=== PATIENT | male | born 1930 | race Caucasian/White ===

== ENCOUNTER 2016-03-11 19:55 | Inpatient (IN) | payer MEDICARE, OTHER ==
[~2016-03-11] VITALS: Ht 185.4 cm; Wt 86.5 kg
[2016-03-11 20:00] VITALS: BP 150/90; PULSE 83; RESP 16; O2SAT 98
[2016-03-11 20:52] LABS: BASOPHILS % (AUTO) 0.2 % (0-3); EOSINOPHILS % (AUTO) 0.7 % (0-5); MONOCYTES % (AUTO) 14.3 % (4-12); Mean Corpuscular Hemoglobin 30.2 pg (27.0-35.0); Mean Corpuscular Volume 91.8 fL (81-100); Platelet Count 157 bil/L (150-400)
[2016-03-11 21:14] LABS: TROPONIN T 0.01 ug/L (0.0-0.011)
--- NOTE | 2016-03-11 21:19 | ED.REPORT ---
HPI-General Illness Date of Service Mar 11, 2016 ED Provider: Oliverio Rosas MD The patient is an 85 year old male who presents to the ED complaining of dizziness and fatigue while shopping earlier today. His spouse reports that he was unable to walk unassisted earlier today and has been having difficulty getting out of bed by himself the last three days. Associated symptom of nausea. He has no history of heart attack. He denies chest pain, shortness of breath, falls, or any other symptoms at this time. He typically uses walking poles to ambulate. Nursing Notes Stated Complaint: ABD PAIN/NAUSEA Chief Complaint: General Complaint Nursing Notes Reviewed: Yes Allergies: Coded Allergies: No Known Allergies (Unverified , 03/11/16) General Time Seen by MD: 21:18 Chief Complaint Other (Fatigue) Hx Obtained From: Patient, Spouse Arrived By: Walk-in Sudden in Onset?: No Onset Occurred: 1 - 4 hours ago Symptom Duration: Since onset Severity: Current: No pain currently Severity: Maximum: No pain Recent Healthcare: No recent doctor visit, No recent hospitalization Similar Sx Previous: No Past Medical History Past Medical History None reported Past Surgical History None reported Smoking History Never Smoker Social History Alcohol Use: Denies alcohol use Drug Use: Denies drug use Ambulatory Status Independent Review of Systems Full Review of Systems Constitutional: Reports: Fatigue, Denies: Chills, Fever Respiratory: Denies: Non-productive cough, Shortness of breath Cardiovascular: Denies: Chest pain, Syncope GI: Reports: Nausea, Denies: Abdominal pain, Vomiting Neurologic: Reports: Dizziness, Problem walking, Denies: Change LOC, Syncope Physical Exam Vital Signs Vital Signs Date Time Temp Pulse Resp B/P Pulse Ox O2 Delivery O2 Flow Rate FiO2 03/12/16 00:06 83 16 119/89 99 Room Air 03/11/16 23:21 93 16 160/56 03/11/16 23:15 94 03/11/16 22:48 92 16 133/85 99 Room Air 03/11/16 20:00 36.6 83 16 150/90 98 Room Air Initial VS: Reviewed Head / Eyes: Atraumatic, Normocephalic, PERRL ENT: Mucous membranes moist, Conjunctiva normal, No scleral icterus Neck: Supple, Non-tender, Full range of motion Respiratory: Breath sounds normal, Clear to auscultation, No respiratory distress Abdomen / GI: Soft, Non-tender, No guarding, No rebound, No distention Back: No CVA tenderness Skin: Warm, Dry, No cyanosis Neurologic: Alert, Oriented, Nonfocal Psychiatric: Mood/affect normal, Behavior normal, Normal thought content General/Constitutional: Awake, Alert, No acute distress Cardiovascular: Atrial fibrillation on monitor Tachycardic Bilateral lower extremity +1 pitting edema Interpretation & Diagnostics Lab Results Interpretation Result Diagram: 03/11/16204303/11/162043 Test 03/11/16 20:44 03/11/16 22:09 03/12/16 00:35 White Blood Count 6.0th/mm3 (3.8-10.1) Red Blood Count 5.24mil/mm3 (4.40-5.80) Hemoglobin 15.8g/dL (13.8-17.2) Hematocrit 48.1% (41.0-50.0) Mean Corpuscular Volume 91.8fL (81-100) Mean Corpuscular Hemoglobin 30.2pg (27.0-35.0) Mean Corpuscular Hemoglobin Concent 32.8% (32.0-37.0) Red Cell Distribution Width 13.6% (12.3-15.4) Platelet Count 157bil/L (150-400) Neutrophils (%) (Auto) 76.0% (40-74) Lymphocytes (%) (Auto) 8.5% (14-46) Monocytes (%) (Auto) 14.3% (4-12) Eosinophils (%) (Auto) 0.7% (0-5) Basophils (%) (Auto) 0.2% (0-3) Sodium Level 136mEq/L (134-144) Potassium Level 5.0mEq/L (3.5-5.2) Chloride Level 97mEq/L (97-108) Carbon Dioxide Level 24mmol/L (18-29) Blood Urea Nitrogen 18mg/dL (8-27) Creatinine 1.01mg/dL (0.76-1.27) Estimat Glomerular Filtration Rate 75mL/min (>59) Glucose Level 193mg/dL (60-99) Calcium Level 8.3mg/dL (8.5-10.1) Magnesium Level 1.8mg/dL (1.6-2.6) Total Bilirubin 1.3mg/dL (0.0-1.2) Aspartate Amino Transf (AST/SGOT) 25U/L (0-50) Alanine Aminotransferase (ALT/SGPT) 15U/L (0-44) Alkaline Phosphatase 54U/L (25-160) Total Protein 7.3g/dL (6.4-8.4) Albumin 3.7g/dL (3.4-5.0) Lipase 20U/L (13-60) Pro-B-Type Natriuretic Peptide 1104pg/mL (0-486) Thyroid Stimulating Hormone (TSH) 1.330uIU/mL (0.450-4.500) Free Thyroxine 1.06ng/dL (0.82-1.77) Troponin T 0.010ug/L (0.0-0.011) ECG Interpretation ECG Interpretation: Atrial fibrillation with rate 102 Ventricular premature complex Nonspecific intraventricular conduction delay Time: 21:20 Interpreted by: ED physician X-Ray Chest Interpretation Chest Xray Interpretation: IMPRESSION: Reduced inspiratory volume, mild interstitial prominence, no definite acute disease. Dictated by: Manuel Hoskins M.D. on 03/11/2016 at 22:16 Approved by: Manuel Hoskins M.D. on 03/11/2016 at 22:16 View: Portable, 1 view Interpretation / Wet Read by: Interpret - Radiologist Re-Eval/Medical Decision Med Decision/Clinical Course 85-year-old presents with generalized weakness and loss of ambulation while at [facility] today. He is discovered to be in atrial fibrillation with a moderately rapid rate. This is new for him. No indication of acute coronary syndrome. He is admitted for further evaluation and management including echocardiogram and trending of his troponin. Initial enzymes at negative. Rapid responses improved with small doses of diltiazem. He is transported to the telemetry unit in stable condition. Source of Hx: Old records Time of Eval: 22:48 Re-Evaluation/Progress Note: Rechecked the patient. Discussed plan for admission. The patient understands and agrees to the plan. All questions addressed. Consultation : Referral / Consult Name: Rene Hsu MD Consulted With: Hospitalist Call Returned at: 22:33 Note: Discussed the patient's history and symptoms in detail with Dr. Hsu, hospitalist, who agrees to admit the patient. Counseled Regarding: Diagnosis, Lab results, Need for admission, Other (imaging ) Discharge & Departure Primary Impression: New onset atrial fibrillation Additional Impressions: Peripheral edema Weakness Disposition: ADMITTED TO HOSPITAL Discharge Condition All VS Reviewed: Yes Condition: Stable Referrals: Stephy Guardado MD (PCP) Jr Attestation Portions of this note were transcribed by Vargas Escalera. I, Dr. Rosas, personally performed the history, physical exam, and medical decision-making; I reviewed and confirmed the accuracy of the information in the transcribed note. Signed by: Jr Banegas, 03/11/16 22:49. copies to: Stephy Guardado MD, Christopher W MD Mar 11, 2016 21:19 VARGAS ESCALERA Mar 11, 2016 21:31
[2016-03-11 21:25] LABS: Magnesium 1.8 mg/dL (1.6-2.6)
[2016-03-11] MEDS ORDERED: Diltiazem 5 mg/mL 5 mL Inj IVPUSH PRN ×2 (21:30→23:45)
--- NOTE | 2016-03-11 22:17 | DRSVH ---
PROCEDURE: X-RAY CHEST ONE VIEW, PORTABLE ([id number]) INDICATIONS: weakness/dizziness TECHNIQUE: One view of the chest was acquired. COMPARISON: None. FINDINGS: Surgical changes and devices: None. Lungs and pleura: No pleural effusions or pneumothorax. Lungs are clear. Mediastinum: Mediastinal contours appear normal. Heart size is normal. Bones and chest wall: No suspicious bony lesions. Overlying soft tissues appear unremarkable. IMPRESSION: Reduced inspiratory volume, mild interstitial prominence, no definite acute disease. Dictated by: Manuel Hoskins M.D. on 03/11/2016 at 22:16 Approved by: Manuel Hoskins M.D. on 03/11/2016 at 22:16
[2016-03-11 22:48] VITALS: BP 133/85; PULSE 92; RESP 16; O2SAT 99
[2016-03-11 23:15] VITALS: PULSE 94
[2016-03-11 23:21] VITALS: BP 160/56; PULSE 93; RESP 16
[2016-03-11] MEDS ORDERED: Alum-Mag Hydrox-Simeth 30 mL Suspension PO PRN (23:45)
[2016-03-11] MEDS ORDERED: Ondansetron 2 mg/mL 2 mL Inj IVPUSH PRN (23:45)
[2016-03-12] VITALS (11 sets, daily range): BP systolic 119–161; BP diastolic 74–95; PULSE 60–103; RESP 16–20; O2SAT 90–99
--- NOTE | 2016-03-12 01:34 | NUR ---
Arrival on the Floor Pt arrived on the floor. Pt oriented to self and place but forgetful of date and time.
[2016-03-12] MEDS ORDERED: Polyethylene Glycol (PEG) 17 Gm Powder PO PRN (03:25)
--- NOTE | 2016-03-12 03:38 | NUR ---
Admission Pt oriented to self and family name. He answers mostly of confused answer. He does not provide accurate H&P. Pt answers no to most of Medical history questions and denies he is taking any medications regularly. Unable to accurate verify allergies but he mentioned that he is not allergic to any medications that he knows of. Telemetry AFib 80s-100s. Addendum: 03/12/16 at 0651 by TYRESE ASHBY RN Pt has been forgetful, confuse and impulsive. Gurvinder alarm on. Lasix 40 mg IV given this am and noted about 1650 cc urine output.
[2016-03-12 04:07] LABS: APPEARANCE,URINE CLEAR (CLEAR,HAZY); COLOR,URINE YELLOW (YELLOW); OCCULT BLOOD,URINE TRACE (NEGATIVE); UROBILINOGEN,URINE NORMAL (NORMAL)
[2016-03-12] MEDS: Furosemide 10 mg/mL 4 mL Inj IVPUSH SCH ×2 (04:35→08:36)
--- NOTE | 2016-03-12 09:31 | HP ---
[address] [address] HISTORY AND PHYSICAL PATIENT: JERI AMATO : 1930 MR#: [id number] ADMIT: 03/12/2016 JOB ID: [id number] HISTORY OF PRESENT ILLNESS: This is an 85-year-old male, a member of the [employer], who presents to the emergency department after becoming weak and having to sit down in the food court at [facility] yesterday afternoon. Paramedics found him to be in atrial fibrillation, which is apparently a new rhythm for him. His rate was above 100 and so, he was admitted for observation and stabilization. He was found to have 2+ edema of the left leg and trace edema of the right leg. He claims that this is new but then contradicts himself stating that he has had edema before. He is not on any medication and appears to have no documented past medical history. His memory may be suspect but he is also definitely a minimizer of medical issues, as is typical for that particular philosophical belief. There has been no chest pain, shortness of breath, nausea, vomiting, abdominal pain, fevers, chills, sweats, coughing, bleeding, seizures, rashes, joint pain, depression, new allergies. PAST MEDICAL HISTORY: The left eye "destroyed itself." He has apparently had edema in the past but is unclear about that. He denies any prior surgeries. MEDICATIONS: None. ALLERGIES: None. SOCIAL HISTORY: He lives in [place] with his but his primary care provider is in [place], where he used to live. He is a believer in the [employer] tradition. There is no smoking, no alcohol. PHYSICAL EXAMINATION: General: Alert and oriented x3. His memory at times seems to be incomplete. Vitals: Temperature is 36.6, pulse 83, respirations 16, blood pressure 119/89, O2 sat is 99% on room air. Pupils are equally round, reactive to light and accommodation. Extraocular muscles are intact, except for the fact that the left eye does not track. Sclerae are pink and anicteric. Throat looks normal. No lymph nodes felt in neck or supraclavicularly. There is no thyromegaly. JVD is less than 6 cm. No carotid bruits are heard. Heart is irregularly irregular. No murmur. Lungs are clear to auscultation bilaterally. Abdomen is soft. Bowel sounds positive. Nontender. No organomegaly. Extremities have 2+ pitting edema of the left ankle and trace on the right ankle. Skin has no rash or jaundice. LABORATORIES: White count 6.0, hemoglobin 15.8, platelets 157. D-dimer 0.5. Sodium is 136, potassium 5.0, chloride 97, CO2 is 24, BUN is 18, creatinine is 1.01, glucose 193, calcium 8.3. Total bilirubin 1.3. Magnesium 1.8. BNP 1104. Troponin I 0.01. TSH is 1.33, T4 is 1.06. Urinalysis shows 0-2 RBC and 0-5 WBC, negative leukocyte esterase, negative nitrites. Influenza screen is negative for A and B. IMAGING: Chest x-ray shows mild interstitial prominence with no definite acute disease. ASSESSMENT AND PLAN: 1. Atrial fibrillation. This appears to be a new rhythm for him and so, echocardiogram will be ordered. Thyroid testing is normal and the BNP is elevated, consistent with rate-related heart failure, most likely. He is on diltiazem p.r.n. with the rate close to controlled. Consider cardiology consultation. 2. Congestive heart failure. Echocardiogram is pending. Lasix has been ordered, and the BNP is noted to be elevated. This will be followed up by the morning rounding physician. 3. [employer] philosophy. I asked the patient directly what his wishes were as far as treatment, and he indicates he would like full traditional medical treatment. SANDRA
[2016-03-12] MEDS ORDERED: Diltiazem 5 mg/mL 5 mL Inj IVPUSH ONE (10:45)
--- NOTE | 2016-03-12 10:45 | PCM.PNMED ---
Subjective Date of Service Mar 12, 2016 Subjective confused, manasa vest, poor memory per staff registered nurse, ongoing afib --currently w/ friends in room, conversant not in manasa vest + Exam Vital Signs Vital Sign - Last Date Time Temp Pulse Resp B/P Pulse Ox O2 Delivery O2 Flow Rate FiO2 03/12/16 09:58 103 03/12/16 06:45 36.4 18 149/95 95 Room Air Intake and Output 03/11/16 03/11/16 03/12/16 Cumulative From/Thru 15:00 23:00 07:00 03/11/16 20:00 - 03/12/16 06:56 Intake Total 400 ml 400 ml Output Total 1650 ml 1650 ml Balance -1250 ml -1250 ml Intake Oral 400 ml 400 ml Output Urine Total 1650 ml 1650 ml # Voids 6 6 # Bowel Movements 0 0 Exam NAD A and O on RA CTAB irreg irreg rate rhythm sof mirian nd + BS BUNDY trace edema shins Lab and Diagnostics Result Diagram: 03/11/16204303/11/162043 Assessment & Plan Reason for admission 85 y m w/ acute onset weakness at store, found to have new afib in RVR, s/p boluses of dilt and lasix for concurrent fluid overload w. BNP >1k, awaiting echo to confirm CHF, developed delirium overnight --trial coreg Q6 w/ hold parameters, prn dilt iv --diuresing lasix 40 QDay, montior bmp, wt decreased 3kg, net neg 1.2L, monitor chem panel --pending lipid, blood glu neg, patient indicates that he trips, friend indicates that he does not fall, anticipate asa if fall risk cnfirmed by elevated bilirubin likey congestive, monitor delirium overnight --monitor, no ETOH hx due to worship Chronic no home medications Dispo eventual home, pending cardiology f/u VTE Prophylaxis: Sub-Q Enoxaparin VTE Mechanical Devices: Intermittant Pneumatic CD Resuscitation Status: CPR: Attempt Resuscitation Marcella Brower MD Mar 12, 2016 10:45
[2016-03-12 11:48] LABS: Phosphorus 2.8 mg/dL (2.5-4.9)
[2016-03-12 12:19] LABS: Bilirubin, Direct 0.2 mg/dL (0.0-0.3)
--- NOTE | 2016-03-12 14:34 | CONS ---
[address] [address] CONSULTATION REPORT PATIENT: JERI AMATO : 1930 MR#: [id number] ADMIT: 03/12/2016 JOB ID: [id number] DATE OF SERVICE: 03/12/2016 CARDIOLOGY CONSULTATION: CHIEF COMPLAINT: Assessed by Dr. Brower of the hospital team to consult on this patient given atrial fibrillation. HISTORY OF PRESENT ILLNESS: The patient is an 85-year-old man who apparently does not have many medical problems. He was at [facility] and suddenly felt very weak, stomach upset, decreased appetite as well as some dizziness. Ultimately he was taken to our ED rather than the emergency department in [place]. He tells me that he is feeling better at this time. Per the ED note, it sounds like he was having some difficulty getting out of bed by himself for the last several days. He denied chest pain, shortness of breath, falls or any other symptoms. Uses walking poles to ambulate. He denies increased shortness of breath. He has some edema which is not clear if this is new or old. He denies orthopnea, PND, palpitations. He tells me that he had no numbness, weakness, speech difficulty. He did require assistance to get into the car for transport as he was shuffling and bent over at the time of his transfer to our hospital. PAST MEDICAL HISTORY/PROBLEM LIST: He denies any problems. MEDICATIONS: None as an outpatient. ALLERGIES: No known drug allergies. PERSONAL SOCIAL HISTORY: No tobacco use. No significant alcohol use. FAMILY HISTORY: No early coronary artery disease. REVIEW OF SYSTEMS: Constitutional: No fevers, chills, night sweats or weight loss. GI: Denies any problems with blood in his stool but had some stomach upset, nausea and decreased appetite yesterday. : No dysuria, no hematuria. Pulmonary: No increased shortness of breath. Cardiac: As per HPI. Neuro: Weakness especially of the lower extremity with a shuffling but no vision or speech changes. No history of stroke. Heme: No easy bruising or bleeding. Derm: No rash or skin breakdown. Endocrine: No heat or cold intolerance. ENT: No sore throat. Ophtho: No vision changes. Psych: No acute issues. All other review of systems on a 12 point review of systems are negative. PHYSICAL EXAMINATION: Blood pressure is 142/87, heart rate is 89, sats are 95% on room air. General: In no acute distress. Speaking in full sentences without apparent shortness of breath. Head and neck examination: Normocephalic, atraumatic. Vascular: No carotid bruits. 1-2+ distal pulses. Heart examination is irregular without obvious murmurs, gallops or rubs appreciated. Lungs clear to auscultation anteriorly. Back: No CVA tenderness to palpation. Abdomen: Soft, non distended. Extremities: Warm. Mild edema, 1-2+ distal pulses. Skin without breakdown appreciated. Neuro: He is alert and interactive. His story changes a little as we speak. Psych: Appropriate mood and affect. Gait not tested. vision: grossly normal. LABORATORY AND DIAGNOSTIC STUDIES: EKG shows possible coarse atrial fibrillation versus a possible atrial tachycardia or atrial flutter with variable block. CURRENT MEDICATIONS: He was getting boluses of diltiazem but I have recommended to start him on oral metoprolol which he has received 25 b.i.d. He was also placed on furosemide 40 IV daily given concerns for CHF. Enoxaparin 40 daily. LABORATORIES: Show white count 6, H/H 15.8 and 48.1, platelets 157,000. Chemistry today shows sodium 139, potassium 2.9, chloride and bicarbonate 93 and 32 respectively. BUN and creatinine 18 and 1.1. Troponin is not elevated. Direct bilirubin somewhat elevated 1.3 and ProBNP somewhat elevated. IMAGING: Shows a chest x-ray with reduced inspiratory volume, mild interstitial prominence which could be related to CHF. PLANS/RECOMMENDATIONS: 1. The patient had weakness and had to be assisted to get him into the car. He had some nausea, some other vague symptoms. Denied any speech or vision changes. The feeling was that this was related all to atrial fibrillation for which he had a high rate. He is now rate controlled and denies any problems at this time. 2. I would get an echocardiogram on him to evaluate his heart function. See if there is any valvular disease. I do not appreciate murmurs on examination. 3. Continue with metoprolol. He is currently not on anything for anticoagulation. Given his age he needs to be at least on aspirin. It sounds like he may have some unsteadiness with walking and falls so anticoagulation with Coumadin might need to have greater discussion in terms of the benefits versus the risks. 4. I think we, at some point, need to get him up with physical therapy and make sure that he is able to walk in a normal fashion once again, as he has does have some increase of risk of stroke, given the fact that he was in atrial fibrillation. Would recommend imaging to rule out stroke as the cause of his weakness 45 minutes was spent reviewing the chart, speaking with the patient and his and examining the patient MTDD
--- NOTE | 2016-03-12 14:52 | DRSVH ---
PROCEDURE: CT BRAIN WITHOUT CONTRAST ([id number]) INDICATIONS: Generalized weakness. Rule out CVA. TECHNIQUE: Noncontrast 4.5 mm thick angled axial sections acquired from the foramen magnum to the vertex, with c oronal reformats. COMPARISON: None. FINDINGS: Image quality: Excellent. CSF spaces: Basal cisterns are patent. No extra-axial fluid collections. The ventricles are symmet vinnie in size and shape. There is moderate cerebral volume loss, with resultant ventricular and sulcal prominence. The ventricles are enlarged slightly out of proportion to the sulci raising the possibi lity of normal pressure hydrocephalus. Brain: No intracranial hemorrhage, mass, or mass effect. There are subcortical, periventricular and deep white matter hypodensities consistent with moderate chronic small vessel ischemic changes. The mcmillan-white matter interface appears preserved. There is intracranial internal carotid artery atheros clerosis. Skull and face: Calvarium and visualized facial bones appear intact, without suspicious lesions. Sinuses: Visualized sinuses and mastoids are clear. IMPRESSION: 1. No definite acute intracranial abnormality. 2. Cerebral volume loss with enlargement of the ventricles study of proportion to the sulci raising the possibility of normal pressure hydrocephalus. Recommend correlation clinically and if indicated further evaluation may be obtained with a nuclear medicine cisternogram. 3. Moderate chronic white matter small vessel ischemic changes. Dictated by: Balbir Norris M.D. on 03/12/2016 at 14:50 Approved by: Balbir Norris M.D. on 03/12/2016 at 14:50
--- NOTE | 2016-03-12 15:37 | DRSVH ---
[facility] [address] [place] [address] Echocardiogram Report Name: JERI AMATO te: 03/12/2016 Height: 73 in Hospital Exam Location: [facility] Weight: 198 lb Gender: Male BSA: 2.1 m2 : 1930 Age: 85 yrs BP: 149/95 mmHg Reason For Study: Atrial fibrillation Ordering Physician: Performed By: Leonarda Bolanos Referring Physician: Rene DOSS Interpretation Summary 1. Normal left ventricular size, wall thickness and systolic function with an estimated EF of 60-65% 2. Grossly normal right ventricular size with normal systolic function. 3. No evidence for significant valvular pathology. No old study for comparison Procedure: A two-dimensional transthoracic echocardiogram with color flow and Doppler was performed. The study quality was technically good. There is no prior echocardiogram noted for this patient. The patient was in atrial fibrillation with heart rates between 91-108 bpm during the exam. Left Ventricle: The left ventricle is normal in size. There is normal left ventricular wall thickness. The ejection fraction is estimated to be 60-65%. No obvious wall motion abnormalities. Diastolic function could not be accurately assessed due to atrial fibrillation. Right Ventricle: The right ventricle is grossly normal size. The right ventricular systolic function is normal. Atria: The left atrium is borderline dilated. Right atrial size is normal. No color doppler evidence for an ASD. Mitral Valve: Leaflets appear thin with normal excursion. There is mild mitral regurgitation. Aortic Valve: The aortic valve is trileaflet. The aortic valve opens well. No aortic regurgitation is present. Tricuspid Valve: The tricuspid valve leaflets are thin and pliable. There is mild tricuspid regurgitation. The right ventricular systolic pressure is estimated at 34 mmHg assuming a right atrial pressure of 8 mm Hg. Pulmonic Valve: The pulmonic valve is normal in structure and function. There is trace pulmonic regurgitation. Great Vessels: The aortic root is normal size. The ascending aorta is mildly dilated at 3.6 cm. The IVC is dilated (diameter is greater than 2.1 cm) yet it collapses greater than 50% with a sniff. This suggests a right atrial pressure of 8 mm Hg. Pericardium/ Pleura There is no pericardial effusion. There is no pleural effusion. MMode/2D Measurements & Calculations LVIDd: 3.9 cm LA dimension: 4.1 cm RA long axis Ao root diam LVIDs: 2.6 cm FS: 32.2 % LA A2 area: 21.5 cm RA area Aortic Jxn IVSd: 0.80 cm LA A4 area: 21.1 cm LVPWd: 0.84 cm LA length (vol): 6.0 cm : 18.9 cm asc Aorta LA vol: 64.4 ml RA vol: 53.6 mlDiam: 3.6 cm LA vol index RA : 25.0 mm/ RVDd major IVC diam: 2.3 cm : 5.0 cm LV calvin. diameter/BSA LV sys. diameter/BSA RVD1 (basal) RVD2 (mid) (cm/m^2): 1.8 (cm/m^2): 1.2 : 2.9 cm Doppler Measurements & Calculations Ao V2 max MV P1/2t TR max oj MV V2 mean : 123.7 cm/sec : 51.3 msec : 252.8 cm/sec : 60.6 cm/sec Ao max P.1 mmHg TR max PG MV mean PG Ao mean P.7 mmHg : 25.6 mmHg PA V2 max MV V2 VTI : 109.4 cm/sec : 14.7 cm PA mean PG PA Accel Time MV P1/2t max oj Ao V2 mean PA V2 mean : 91.5 cm/sec : 69.1 cm/sec MVA(P1/2t): 4.3 cm2 Ao V2 VTI : 19.9 cm Reading Physician:03:37 PM
--- NOTE | 2016-03-12 16:56 | NUR ---
Social Work: Initial Assessment D: Per EMR review, pt is an 85 year old male admitted for New onset Afib, generalized Weakness. Pt is [facility] Medicare; pt has no LTC insurance or VA benefits. PCP is Stephy Guardado MD. NOK is Vicki Mendoza, , . Advanced directive information provided to pt's . Readmit score not entered at this time. HOUSEKEEPER/CUSTODIAN/LAUNDRY WORKER met with pt and at bedside. SW role explained. See initial assessment. Pt has baseline dementia and lives at home with his who provides assistance with ADLS. Pt was previously ambulating I and using walking sticks. Pt has never had home health or skilled rehab. HOUSEKEEPER/CUSTODIAN/LAUNDRY WORKER reviewed PT recommendations with pt and spouse; they agree with plan for skilled rehab. SNF choice list provided. Preference is for [facility]. HOUSEKEEPER/CUSTODIAN/LAUNDRY WORKER provided referrals to both facilities. Pt to require authorization prior to admission. PPW and PASSR Complete A: Pt who has baseline dementia but previously I with ambulation P: Anticipate pt to discharge to skilled rehab pending GH authorization; [facility] Reviewing ANGUS Berger Addendum: 03/12/16 at 1704 by AGNES CARRERA Amended: Links added.
--- NOTE | 2016-03-12 17:23 | NUR ---
Evaluation completed. Please go to "Notes" then click on "Assessments and Notes" (bottom left corner of screen). Then select appropriate discipline tab on top of screen.
[2016-03-13] VITALS (8 sets, daily range): BP systolic 119–141; BP diastolic 73–85; PULSE 64–89; RESP 16–22; O2SAT 93–97
--- NOTE | 2016-03-13 06:00 | NUR ---
Mentation/ pt confused and very forgetful, unable to retain any information for more than a few minutes. Pt incontinent to urine over night, denies any pain.
[2016-03-13 06:42] LABS: Magnesium 1.9 mg/dL (1.6-2.6); Phosphorus 3.2 mg/dL (2.5-4.9)
[2016-03-13] MEDS: Furosemide 10 mg/mL 4 mL Inj IVPUSH SCH (09:02)
--- NOTE | 2016-03-13 10:01 | PCM.PNMED ---
Subjective Date of Service Mar 13, 2016 Subjective He continues confused and hard of hearing. He was seen by Cardiology and had a normal Echo done yesterday. An NPH workup was started but the Cisternogram/LP will have to be reordered as an outpatient as that is not a covered inpatient test. Today he is staring at the TV and ignoring my visit. When I first saw him 2 days ago he was engaged and only mildly confused. He has been reported to have urinary incontinence yesterday. PT has not seen him yet. Exam Vital Signs Vital Sign - Last Date Time Temp Pulse Resp B/P Pulse Ox O2 Delivery O2 Flow Rate FiO2 03/13/16 06:02 72 03/13/16 05:50 36.3 22 128/85 94 Room Air Intake and Output 03/12/16 03/12/16 03/13/16 Cumulative From/Thru 15:00 23:00 07:00 03/11/16 20:00 - 03/13/16 06:51 Intake Total 736 ml 220 ml 1356 ml Output Total 885 ml 2535 ml Balance -149 ml 220 ml -1179 ml Intake Oral 736 ml 220 ml 1356 ml Output Urine Total 885 ml 2535 ml # Voids 2 3 11 # Bowel Movements 2 0 2 Exam He is staring at the TV, ignoring my visit. I was not able to engage him at any level. He is very hard of hearing. Heart is irregularly irregular without murmur. Lungs are clear to auscultation bilaterally. Extremities have no ankle edema. IVs and Medications Medications Reviewed: Medications were reviewed in detail Lab and Diagnostics Result Diagram: 03/11/16204303/13/16 0533 X-Rays, CTs and MRIs CT BRAIN WITHOUT CONTRAST ([id number]) INDICATIONS: Generalized weakness. Rule out CVA. TECHNIQUE: Noncontrast 4.5 mm thick angled axial sections acquired from the foramen magnum to the vertex, with coronal reformats. COMPARISON: None. FINDINGS: Image quality: Excellent. CSF spaces: Basal cisterns are patent. No extra-axial fluid collections. The ventricles are symmetric in size and shape. There is moderate cerebral volume loss, with resultant ventricular and sulcal prominence. The ventricles are enlarged slightly out of proportion to the sulci raising the possibility of normal pressure hydrocephalus. Brain: No intracranial hemorrhage, mass, or mass effect. There are subcortical , periventricular and deep white matter hypodensities consistent with moderate chronic small vessel ischemic changes. The mcmillan-white matter interface appears preserved. There is intracranial internal carotid artery atherosclerosis. Skull and face: Calvarium and visualized facial bones appear intact, without suspicious lesions. Sinuses: Visualized sinuses and mastoids are clear. IMPRESSION: 1. No definite acute intracranial abnormality. 2. Cerebral volume loss with enlargement of the ventricles study of proportion to the sulci raising the possibility of normal pressure hydrocephalus. Recommend correlation clinically and if indicated further evaluation may be obtained with a nuclear medicine cisternogram. 3. Moderate chronic white matter small vessel ischemic changes. Dictated by: Balbir Norris M.D. on 03/12/2016 at 14:50 Cardiac Echo Impressions Atrial fibrillation Ordering Physician: Performed By: Leonarda Bolanos Referring Physician: Rene HSU Interpretation Summary 1. Normal left ventricular size, wall thickness and systolic function with an estimated EF of 60-65% 2. Grossly normal right ventricular size with normal systolic function. 3. No evidence for significant valvular pathology. No old study for comparison Assessment & Plan 85 y m w/ acute onset weakness at store, found to have new afib in RVR -- Continue metoprolol per cardiology. -- Continue Lasix changing to oral daily along with electrolyte monitoring. His edema has resolved. -- Consider anticoagulation with Coumadin, pending physical therapy evaluation for gait and balance stability. 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 Normal pressure hydrocephalus -Nuclear cisternogram would be needed to clarify and this will apparently need to be deferred to outpatient status. -He appears to have the classic triad of early dementia, gait/falling instability, urinary incontinence. Dispo to a fdc facility for rehabilitation and continuation of the NPH workup. This will likely occur tomorrow pending physical therapy evaluation and cardiology consult conclusion VTE Prophylaxis: Sub-Q Enoxaparin VTE Mechanical Devices: Intermittant Pneumatic CD Resuscitation Status: CPR: Attempt Resuscitation Rene Hsu MD Mar 13, 2016 07:42
[2016-03-14] VITALS (11 sets, daily range): BP systolic 120–138; BP diastolic 71–81; PULSE 58–95; RESP 16–22; O2SAT 92–96
--- NOTE | 2016-03-14 05:50 | NUR ---
Mentation pt more lucid this night, able to have meaningful conversation and talks about life as gymnastics instructor , able to make needs known and sometimes uses urinal, sometimes incontinent. Pt denies any pain and is pleasant all shift.
[2016-03-14 08:19] LABS: BASOPHILS % (AUTO) 0.2 % (0-3); EOSINOPHILS % (AUTO) 1.5 % (0-5); MONOCYTES % (AUTO) 19.8 % (4-12); Mean Corpuscular Hemoglobin 30.2 pg (27.0-35.0); Mean Corpuscular Volume 90.7 fL (81-100); NEUTROPHILS % (AUTO) 56.8 % (40-74); Platelet Count 159 bil/L (150-400)
[2016-03-14] MEDS: Furosemide 10 mg/mL 4 mL Inj IVPUSH SCH (09:15)
--- NOTE | 2016-03-14 10:44 | NUR ---
Spoke with Sky at [facility] and they can accept patient when ready with to follow. I will initiate the [facility] auth today. Updated RHEUMATOLOGY SPECIALIST
--- NOTE | 2016-03-14 11:18 | NUR ---
Social Work Continued Discharge Planning: SW met with patient and at bedside to discuss discharge plan. Patient and states plan as SNF vs HHC. Patient states wanting to discharge patient home upon discharge. Patient educated on therapy recommendations for SNF placement. SW discussed HHC services and expectations at discharge. Private pay caregiver services also discussed with patient and . Patient states plan as SNF placement as she is unable to care for patient needs. Patient aware of SNF acceptance at [facility], pending [facility] [employer]. UR specialist to begin [facility] for possible authorization SNF acceptance. SW to follow. PLAN: SNF, Accepted at [facility] pending [facility] (initiated), pending clinical course. Andreas GRECO
--- NOTE | 2016-03-14 19:26 | NUR ---
Activity/Nuero Patient a/o x 1-2, denies pain or sob but c/o nausea throughout the shift, taking diet poor, Zofran x 1 given. Patient up in chair for meals, amb with walker and one person assist, slightly unsteady on feet. Incont of urine and BRP. VSS, tele A fib. spoke with MD and aware of poc.
--- NOTE | 2016-03-14 21:30 | PCM.PNMED ---
Subjective Date of Service Mar 14, 2016 Subjective She has no new complaints and appears comfortable in no apparent distress. Exam Vital Signs Vital Sign - Last Date Time Temp Pulse Resp B/P Pulse Ox O2 Delivery O2 Flow Rate FiO2 03/14/16 20:00 77 03/14/16 19:51 22 121/78 03/14/16 16:47 36.8 92 Room Air Intake and Output 03/13/16 03/13/16 03/14/16 Cumulative From/Thru 15:00 23:00 07:00 03/11/16 20:00 - 03/14/16 06:24 Intake Total 600 ml 100 ml 2056 ml Output Total 850 ml 200 ml 3585 ml Balance -250 ml -100 ml -1529 ml Intake Oral 600 ml 100 ml 2056 ml Output Urine Total 850 ml 200 ml 3585 ml # Voids 11 # Bowel Movements 0 2 Exam General: Patient is sitting in a bedside chair in no apparent distress. He appears comfortable. HEENT: Head is atraumatic normocephalic. Eyes: Pupils are equally round and reactive to light and accommodation. Extraocular muscles are intact. Sclera are white anicteric. Subconjunctival mucosa is pink. Ears and nose are unremarkable. Oropharynx: There is no mucosal lesions, there is no thrush, there is no pharyngitis. Neck: Is supple, there are no nodes or masses or tenderness. Chest: Is clear to auscultation and percussion. There are no rales, rhonchi, wheezes or rubs. Heart: Rate is controlled, rhythm is irregular. There is no new murmur, rub or gallop. Abdomen: Good bowel sounds are present. Abdomen is soft, nontender, no organomegaly or masses were appreciated. Extremities: Are symmetrical and well perfused. There is no edema, there is no cellulitis, no rash. Neurologic: There are no focal neurological deficits. Cranial nerves II through XII are intact. There are no sensory or motor deficits. Psychiatric: Patients mood is calm and shows no sign of agitation. Genital: Deferred Rectal: Deferred Lab and Diagnostics Result Diagram: 03/14/16 5497 03/14/16 4842 X-Rays, CTs and MRIs CT BRAIN WITHOUT CONTRAST ([id number]) INDICATIONS: Generalized weakness. Rule out CVA. TECHNIQUE: Noncontrast 4.5 mm thick angled axial sections acquired from the foramen magnum to the vertex, with coronal reformats. COMPARISON: None. FINDINGS: Image quality: Excellent. CSF spaces: Basal cisterns are patent. No extra-axial fluid collections. The ventricles are symmetric in size and shape. There is moderate cerebral volume loss, with resultant ventricular and sulcal prominence. The ventricles are enlarged slightly out of proportion to the sulci raising the possibility of normal pressure hydrocephalus. Brain: No intracranial hemorrhage, mass, or mass effect. There are subcortical , periventricular and deep white matter hypodensities consistent with moderate chronic small vessel ischemic changes. The mcmillan-white matter interface appears preserved. There is intracranial internal carotid artery atherosclerosis. Skull and face: Calvarium and visualized facial bones appear intact, without suspicious lesions. Sinuses: Visualized sinuses and mastoids are clear. IMPRESSION: 1. No definite acute intracranial abnormality. 2. Cerebral volume loss with enlargement of the ventricles study of proportion to the sulci raising the possibility of normal pressure hydrocephalus. Recommend correlation clinically and if indicated further evaluation may be obtained with a nuclear medicine cisternogram. 3. Moderate chronic white matter small vessel ischemic changes. Dictated by: Balbir Norris M.D. on 03/12/2016 at 14:50 PROCEDURE: X-RAY CHEST ONE VIEW, PORTABLE ([id number]) INDICATIONS: weakness/dizziness TECHNIQUE: One view of the chest was acquired. COMPARISON: None. FINDINGS: Surgical changes and devices: None. Lungs and pleura: No pleural effusions or pneumothorax. Lungs are clear. Mediastinum: Mediastinal contours appear normal. Heart size is normal. Bones and chest wall: No suspicious bony lesions. Overlying soft tissues appear unremarkable. IMPRESSION: Reduced inspiratory volume, mild interstitial prominence, no definite acute disease. Dictated by: Manuel Hoskins M.D. on 03/11/2016 at 22:16 Approved by: Manuel Hoskins M.D. on 03/11/2016 at 22:16 Cardiac Echo Impressions Atrial fibrillation Ordering Physician: Performed By: Leonarda Bolanos Referring Physician: Rene DOSS Interpretation Summary 1. Normal left ventricular size, wall thickness and systolic function with an estimated EF of 60-65% 2. Grossly normal right ventricular size with normal systolic function. 3. No evidence for significant valvular pathology. No old study for comparison Assessment & Plan This is an 85-year-old male, a member of the [employer], who presents to the emergency department after becoming weak and having to sit down in the food court at [facility] yesterday afternoon. Paramedics found him to be in atrial fibrillation, which is apparently a new rhythm for him. His rate was above 100 and so, he was admitted for observation and stabilization. He was found to have 2+ edema of the left leg and trace edema of the right leg. He claims that this is new but then contradicts himself stating that he has had edema before. He is not on any medication and appears to have no documented past medical history. His memory may be suspect but he is also definitely a minimizer of medical issues, as is typical for that particular philosophical belief. There has been no chest pain, shortness of breath, nausea, vomiting, abdominal pain, fevers, chills, sweats, coughing, bleeding, seizures, rashes, joint pain, depression, new allergies. 85 y m w/ acute onset weakness at store, found to have new afib in RVR -- Continue metoprolol 25 mg by mouth twice a day per cardiology. -- Continue Lasix changing to oral daily along with electrolyte monitoring. His edema has resolved. 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 Normal pressure hydrocephalus -Patient has a triad of early dementia, unstable gait and urinary incontinence. -CT findings are consistent with this diagnosis as well -Nuclear cisternogram would be needed to clarify and this will apparently need to be deferred to outpatient status. Disposition: She will need to be transferred to a a prison facility for rehabilitation and continuation of the NPH workup. This will likely occur tomorrow pending physical therapy evaluation and cardiology consult conclusion. I discussed case with patient's Vicki at length over the phone. Pain Evaluation: Adequate Pain Control VTE Prophylaxis: Sub-Q Enoxaparin VTE Mechanical Devices: Intermittant Pneumatic CD Resuscitation Status: CPR: Attempt Resuscitation Oliverio Thomson MD Mar 14, 2016 21:30
[2016-03-15] VITALS (7 sets, daily range): BP systolic 109–129; BP diastolic 75–84; PULSE 71–92; RESP 16–17; O2SAT 92–95
--- NOTE | 2016-03-15 03:32 | NUR ---
CONFUSION Initial assessment patient was oriented to self and place, using call light appropriately. As night progressed patient increasingly confused, not calling staff, impulsively trying to get out of bed, confused to time and place, and not steady on feet. Bed alarm on and close monitoring of patient for safety ongoing.
[2016-03-15 05:47] LABS: BASOPHILS % (AUTO) 0.2 % (0-3); EOSINOPHILS % (AUTO) 0.2 % (0-5); MONOCYTES % (AUTO) 19.4 % (4-12); Mean Corpuscular Hemoglobin 29.9 pg (27.0-35.0); Mean Corpuscular Volume 91.5 fL (81-100); NEUTROPHILS % (AUTO) 58.7 % (40-74); Platelet Count 175 bil/L (150-400)
[2016-03-15 06:40] LABS: Phosphorus 4.3 mg/dL (2.5-4.9)
[2016-03-15] MEDS: Furosemide 10 mg/mL 4 mL Inj IVPUSH SCH (07:48)
[2016-03-15] MEDS: Pantoprazole 40 mg ER24 Tablet PO SCH (07:48)
--- NOTE | 2016-03-15 15:25 | NUR ---
Called and spoke with Danna at [facility] and this patient is new to her and she is reviewing patient for SNF authorization. Updated RADIATOR MECHANIC
--- NOTE | 2016-03-15 15:29 | NUR ---
Social Work Continued Discharge Planning: Plan is SNF placement at discharge. SW spoke with patient and at bedside. aware of acceptance at [facility]. Per [facility] rep facility at capacity and bed availability to be determined. [facility]. [facility] auth initiated and awaiting approval. SW to follow. PLAN: Accepted at [facility] and [facility] pending bed availability and [facility] auth. [facility] rehab will have bed available tomorrow. SW to follow. Andreas GRECO
--- NOTE | 2016-03-15 18:27 | NUR ---
Mentation Pt. is confused but could follow commands. He denied discomfort. [place] alarm and chair alarm used for safety. He transferred out of bed with a gait belt, a FWW, and 1p assist. Very unsteady on feet. asked questions about normal pressure hydrocephalus. Printed information given as well as discussion. stated she understood info.
--- NOTE | 2016-03-15 23:01 | PCM.PNMED ---
Subjective Date of Service Mar 15, 2016 Subjective Patient has no new complaints. He is confused but remains cooperative than not agitated. Exam Vital Signs Vital Sign - Last Date Time Temp Pulse Resp B/P Pulse Ox O2 Delivery O2 Flow Rate FiO2 03/15/16 20:48 36.6 71 17 124/78 94 Room Air Intake and Output 03/14/16 03/14/16 03/15/16 Cumulative From/Thru 15:00 23:00 07:00 03/11/16 20:00 - 03/15/16 05:43 Intake Total 600 ml 400 ml 3056 ml Output Total 450 ml 475 ml 4510 ml Balance 150 ml -75 ml -1454 ml Intake Oral 600 ml 400 ml 3056 ml Output Urine Total 450 ml 475 ml 4510 ml # Voids 11 # Bowel Movements 0 2 Exam General: Patient is sitting in a bedside chair again today, in no apparent distress. He appears comfortable. HEENT: Head is atraumatic normocephalic. Eyes: Pupils are equally round and reactive to light and accommodation. Extraocular muscles are intact. Sclera are white anicteric. Subconjunctival mucosa is pink. Ears and nose are unremarkable. Oropharynx: There is no mucosal lesions, there is no thrush, there is no pharyngitis. Neck: Is supple, there are no nodes or masses or tenderness. Chest: Is clear to auscultation and percussion. There are no rales, rhonchi, wheezes or rubs. Heart: Rate is controlled, rhythm is irregular. There is no new murmur, rub or gallop. Abdomen: Good bowel sounds are present. Abdomen is soft, nontender, no organomegaly or masses were appreciated. Extremities: Are symmetrical and well perfused. There is no edema, there is no cellulitis, no rash. Neurologic: There are no focal neurological deficits. Cranial nerves II through XII are intact. There are no sensory or motor deficits. Psychiatric: Patients mood is calm and shows no sign of agitation. Genital: Deferred Rectal: Deferred Lab and Diagnostics Result Diagram: 03/15/16 05003/15/16 050 Microbiology Name: JERI AMATO Age/Sex: 85/M Attend Dr: Oliverio Rosas Acct: [id number] Unit: [id number] Status: REG ER Location: SED Re03/11/16 Disch: Specimen: [id number] Collected: 03/11/16 Status: COMP Req#: [id number] Received: 03/11/16 Source: SHAZIA Noel Desc : Subm Dr: Oliverio Rosas MD Ordered: RAPID FLU IRS Comments: Collected by Nurse/Unit? Y/N Y Procedure Result Verified Site Microbiology ZAYRA INFLUENZA RAPID AG SCREEN Final 03/11/16 RESULT NEGATIVE FOR INFLUENZA TYPE A AND B This rapid assay is a screen test only for Influenza A&B and does not definitively rule out the presence of FLU A & B or other respiratory viral pathogens. The assay's sensitivity varies on the specimen type submitted. Nasal washes are optimum. Recommend respiratory viral cultures and DFA to confirm negative screens and rule out other viral pathogens. Per CDC, the sensitivity of this method is approximately 50% for H1N1. A negative result does NOT rule out Novel H1N1 (Swine Flu) X-Rays, CTs and MRIs CT BRAIN WITHOUT CONTRAST ([id number]) INDICATIONS: Generalized weakness. Rule out CVA. TECHNIQUE: Noncontrast 4.5 mm thick angled axial sections acquired from the foramen magnum to the vertex, with coronal reformats. COMPARISON: None. FINDINGS: Image quality: Excellent. CSF spaces: Basal cisterns are patent. No extra-axial fluid collections. The ventricles are symmetric in size and shape. There is moderate cerebral volume loss, with resultant ventricular and sulcal prominence. The ventricles are enlarged slightly out of proportion to the sulci raising the possibility of normal pressure hydrocephalus. Brain: No intracranial hemorrhage, mass, or mass effect. There are subcortical , periventricular and deep white matter hypodensities consistent with moderate chronic small vessel ischemic changes. The mcmillan-white matter interface appears preserved. There is intracranial internal carotid artery atherosclerosis. Skull and face: Calvarium and visualized facial bones appear intact, without suspicious lesions. Sinuses: Visualized sinuses and mastoids are clear. IMPRESSION: 1. No definite acute intracranial abnormality. 2. Cerebral volume loss with enlargement of the ventricles study of proportion to the sulci raising the possibility of normal pressure hydrocephalus. Recommend correlation clinically and if indicated further evaluation may be obtained with a nuclear medicine cisternogram. 3. Moderate chronic white matter small vessel ischemic changes. Dictated by: Balbir Norris M.D. on 03/12/2016 at 14:50 PROCEDURE: X-RAY CHEST ONE VIEW, PORTABLE ([id number]) INDICATIONS: weakness/dizziness TECHNIQUE: One view of the chest was acquired. COMPARISON: None. FINDINGS: Surgical changes and devices: None. Lungs and pleura: No pleural effusions or pneumothorax. Lungs are clear. Mediastinum: Mediastinal contours appear normal. Heart size is normal. Bones and chest wall: No suspicious bony lesions. Overlying soft tissues appear unremarkable. IMPRESSION: Reduced inspiratory volume, mild interstitial prominence, no definite acute disease. Dictated by: Manuel Hoskins M.D. on 03/11/2016 at 22:16 Approved by: Manuel Hoskins M.D. on 03/11/2016 at 22:16 Cardiac Echo Impressions Atrial fibrillation Ordering Physician: Performed By: Leonarda Bolanos Referring Physician: Rene DOSS Interpretation Summary 1. Normal left ventricular size, wall thickness and systolic function with an estimated EF of 60-65% 2. Grossly normal right ventricular size with normal systolic function. 3. No evidence for significant valvular pathology. No old study for comparison Assessment & Plan This is an 85-year-old male, a member of the [employer], who presents to the emergency department after becoming weak and having to sit down in the food court at [facility] yesterday afternoon. Paramedics found him to be in atrial fibrillation, which is apparently a new rhythm for him. His rate was above 100 and so, he was admitted for observation and stabilization. He was found to have 2+ edema of the left leg and trace edema of the right leg. He claims that this is new but then contradicts himself stating that he has had edema before. He is not on any medication and appears to have no documented past medical history. His memory may be suspect but he is also definitely a minimizer of medical issues, as is typical for that particular philosophical belief. There has been no chest pain, shortness of breath, nausea, vomiting, abdominal pain, fevers, chills, sweats, coughing, bleeding, seizures, rashes, joint pain, depression, new allergies. 85 y m w/ acute onset weakness at store, found to have new afib in RVR -- Continue metoprolol 25 mg by mouth twice a day per cardiology. -- Continue Lasix changing to oral daily along with electrolyte monitoring. His edema has resolved. -- Continue telemetry monitoring Acute renal failure --This appears to be due to prerenal azotemia from Lasix --Lasix was started as patient had A. fib with a rapid ventricular response with resultant fluid overload --We will DC Lasix and check labs in a.m. 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 Normal pressure hydrocephalus -Patient has the triad of early dementia, unstable gait and urinary incontinence. -CT findings are consistent with this diagnosis as well -Nuclear cisternogram would be needed to clarify and this will apparently need to be performed as an outpatient. Disposition: He will need to be transferred to a a care home facility for rehabilitation and continuation of the NPH workup. This will likely occur tomorrow pending lab work and physical therapy evaluation and cardiology consult conclusion. I discussed case with patient's Vicki at length at bedside today. Pain Evaluation: Adequate Pain Control VTE Prophylaxis: Sub-Q Enoxaparin VTE Mechanical Devices: Intermittant Pneumatic CD Resuscitation Status: CPR: Attempt Resuscitation VernonOliverio MD Mar 15, 2016 23:00
[2016-03-16 01:00] VITALS: BP 123/75; PULSE 68; RESP 16; O2SAT 95
[2016-03-16 05:32] VITALS: BP 119/81; PULSE 80; RESP 17; O2SAT 98
[2016-03-16 05:49] LABS: BASOPHILS % (AUTO) 0.1 % (0-3); EOSINOPHILS % (AUTO) 0.6 % (0-5); MONOCYTES % (AUTO) 12.6 % (4-12); Mean Corpuscular Hemoglobin 29.9 pg (27.0-35.0); Mean Corpuscular Volume 91.2 fL (81-100); Platelet Count 178 bil/L (150-400)
[2016-03-16 08:46] VITALS: BP 115/79; PULSE 84; RESP 16; O2SAT 86
[2016-03-16] MEDS: Pantoprazole 40 mg ER24 Tablet PO SCH (09:02)
[2016-03-16 09:33] VITALS: PULSE 117
--- NOTE | 2016-03-16 10:51 | NUR ---
Called Danna VALDEZ at [facility] and she is reviewing patient for auth today Updated MUSIC WRITER Addendum: 03/16/16 at 1248 by PIERO BO CM Patient is approved for transfer to alf today. Updated MUSIC WRITER
--- NOTE | 2016-03-16 12:09 | NUR ---
Social Work Continued Discharge Planning: Plan remains as SNF placement at [facility]. Auth obtained per UR specialist. RANDI spoke to [facility] who requested updated clinicals. RANDI faxed updated clinicals per request. RANDI contacted and left voice mail message for patient Vicki, . consulted for discharge orders. RANDI contacted and left voice mail message for facility to determine transport time. Paperwork placed on chart. PASSR completed. UR specialist compiled transfer packet. RANDI to follow. PLAN: SNF acceptance at [facility], pending transport time. RANDI to follow Andreas GRECO Addendum: 03/16/16 at 1351 by CONNER CARRERA RANDI spoke to [facility] Marcelina who states that patient accepted and aware of wants to transfer to rehab. to transport patient to rehab today and address to facility provided. RANDI faxed discharge paperwork to facility at [phone]. RANDI provided with PACAT. No other need identified at this time. SW to follow. PLAN: [facility] via POV. No other needs Andreas GRECO
--- NOTE | 2016-03-16 12:45 | PCM.DIMED ---
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 Patient will need to hold follow-up studies for the normal pressure hydrocephalus. Follow-up studies a nuclear cisternogram. Please consult your primary care physician after discharge. Follow-up plan Patient continue with follow-up with normal pressure hydrocephalus. Recommended cardiology follow-up as the patient has a new onset of atrial fibrillation. Follow-up with PCP in: 1 week Aleyda Cantor DO Mar 16, 2016 12:29
[2016-03-16] MEDS ORDERED: ASPI325T32 PO (12:50)
[2016-03-16] MEDS ORDERED: METO25TA6 PO (12:50)
--- NOTE | 2016-03-16 13:04 | PCM.DC.MED ---
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 Rule out CVA. TECHNIQUE: Noncontrast 4.5 mm thick angled axial sections acquired from the foramen magnum to the vertex, with coronal reformats. COMPARISON: None. FINDINGS: Image quality: Excellent. CSF spaces: Basal cisterns are patent. No extra-axial fluid collections. The ventricles are symmetric in size and shape. There is moderate cerebral volume loss, with resultant ventricular and sulcal prominence. The ventricles are enlarged slightly out of proportion to the sulci raising the possibility of normal pressure hydrocephalus. Brain: No intracranial hemorrhage, mass, or mass effect. There are subcortical , periventricular and deep white matter hypodensities consistent with moderate chronic small vessel ischemic changes. The mcmillan-white matter interface appears preserved. There is intracranial internal carotid artery atherosclerosis. Skull and face: Calvarium and visualized facial bones appear intact, without suspicious lesions. Sinuses: Visualized sinuses and mastoids are clear. IMPRESSION: 1. No definite acute intracranial abnormality. 2. Cerebral volume loss with enlargement of the ventricles study of proportion to the sulci raising the possibility of normal pressure hydrocephalus. Recommend correlation clinically and if indicated further evaluation may be obtained with a nuclear medicine cisternogram. 3. Moderate chronic white matter small vessel ischemic changes. Dictated by: Balbir Norris M.D. on 03/12/2016 at 14:50 PROCEDURE: X-RAY CHEST ONE VIEW, PORTABLE ([id number]) INDICATIONS: weakness/dizziness TECHNIQUE: One view of the chest was acquired. COMPARISON: None. FINDINGS: Surgical changes and devices: None. Lungs and pleura: No pleural effusions or pneumothorax. Lungs are clear. Mediastinum: Mediastinal contours appear normal. Heart size is normal. Bones and chest wall: No suspicious bony lesions. Overlying soft tissues appear unremarkable. IMPRESSION: Reduced inspiratory volume, mild interstitial prominence, no definite acute disease. Dictated by: Manuel Hoskins M.D. on 03/11/2016 at 22:16 Approved by: Manuel Hoskins M.D. on 03/11/2016 at 22:16 Cardiac Echo Impression Atrial fibrillation Ordering Physician: Performed By: Leonarda Bolanos Referring Physician: Rene HSU Interpretation Summary 1. Normal left ventricular size, wall thickness and systolic function with an estimated EF of 60-65% 2. Grossly normal right ventricular size with normal systolic function. 3. No evidence for significant valvular pathology. No old study for comparison Hospital Course This is an 85-year-old male, a member of the [employer], who presents to the emergency department after becoming weak and having to sit down in the food court at [facility] the afternoon of 03/12/16. Paramedics found him to be in atrial fibrillation, which is apparently a new rhythm for him. His rate was above 100 and so, he was admitted for observation and stabilization. He was found to have 2+ edema of the left leg and trace edema of the right leg. He claims that this is new but then contradicts himself stating that he has had edema before. He is not on any medication and appears to have no documented past medical history. His memory may be suspect but he is also definitely a minimizer of medical issues, as is typical for that particular philosophical belief. There has been no chest pain, shortness of breath, nausea, vomiting, abdominal pain, fevers, chills, sweats, coughing, bleeding, seizures, rashes, joint pain, depression, new allergies. 1) Patient was admitted for weakness secondary to new onset A. fib and RVR. An echo was performed showin. Normal left ventricular size, wall thickness and systolic function with an estimated EF of 60-65% 2. Grossly normal right ventricular size with normal systolic function. 3. No evidence for significant valvular pathology. The patient was then started on metoprolol 25 mg twice a day as per cardiology and will continue this as a home medication. 2) The patient was also found to have lower extremity edema and was placed on Lasix. The patient's blood pressure edema well to the Lasix therapy however the patient did appear to go into prerenal azotemia from Lasix. The Lasix was stopped in the creatinine started to trending down the next day from 1.46-1.44 3) the patient noted to show signs of delirium most likely to be early dementia related to normal pressure hydrocephalus. The patient did have the triad of early dementia, unstable gait, and urinary incontinence. CT findings were consistent with this diagnosis and radiology recommended that the patient follow -up with nuclear medicine to have a nuclear cystogram for clarification. [facility] secondary to weakness and continued workup for normal pressure hydrocephalus. The plan was discussed at length with the patient's who is in agreement with this plan. Exam Vital Signs (Last) Date Time Temp Pulse Resp B/P Pulse Ox O2 Delivery O2 Flow Rate FiO2 03/16/16 09:33 117 03/16/16 08:55 Supplement Oxygen 03/16/16 08:46 36.7 16 115/79 86 Exam Physical Exam: GEN: Patient was awake, alert, responding appropriately to questions HEENT: PERRLA, EOMI, Neck soft supple, trachea midline, nomocephalic/atraumatic CV: +S1/S2, irregular, no murmurs auscultated Respiratory: CTAB, no wheezes, rales, rhonchi GI: +bowel sounds x4, soft, compressible, non TTP EXT: no c/c/e Psych: mood and affect were depressed Test 03/11/16 20:44 03/11/16 22:09 03/12/16 00:35 03/12/16 02:00 Lipase 20U/L (13-60) Pro-B-Type Natriuretic Peptide 1104pg/mL (0-486) Thyroid Stimulating Hormone (TSH) 1.330uIU/mL (0.450-4.500) Free Thyroxine 1.06ng/dL (0.82-1.77) Troponin T 0.010ug/L (0.0-0.011) Urine Color Yellow (YELLOW) Urine Appearance Clear (CLEAR,HAZY) Urine pH 6.0 (5.0-8.0) Urine Specific Edison 1.020 (1.003-1.035) Urine Protein Negativemg/dL (NEG,TRACE) Urine Glucose (UA) Negativemg/dL (NEGATIVE) Urine Ketones Tracemg/dL (NEGATIVE) Urine Occult Blood Trace (NEGATIVE) Urine Nitrite Negative (NEGATIVE) Urine Bilirubin Negative (NEGATIVE) Urine Urobilinogen Normalmg/dL (NORMAL) Urine Leukocyte Esterase Negative (NEGATIVE) Urine RBC 0-2/hpf (0-2) Urine WBC 0-5/hpf (0-5) Urine Epithelial Cells Occasional/hpf (NONE-MOD) Urine Crystals None seen (NONE SEEN) Urine Bacteria None/hpf (NONE-FEW) Urine Hyaline Casts None/lpf (NONE) Urine Granular Casts None seen (NONE SEEN) Urine Waxy Casts None seen (NONE SEEN) Urine Red Blood Cell Casts None seen (NONE SEEN) Urine White Blood Cell Casts None seen (NONE SEEN) Urine Mucus None seen (None Seen) Urine Trichomonas None seen (NONE SEEN) Urine Yeast None (NONE SEEN) Urinalysis Comment Urine Culture Reflexed Not indicated Test 03/12/16 07:04 03/12/16 11:05 03/13/16 05:33 03/15/16 05:02 D-Dimer 0.5mg/L (<0.50) Direct Bilirubin 0.2mg/dL (0.0-0.3) Triglycerides Level 92mg/dL (0-149) Cholesterol Level 185mg/dL (100-199) LDL Cholesterol, Calculated 104.600mg/dL (0-99) VLDL Cholesterol 18.400mg/dL HDL Cholesterol 62mg/dL (>39) Cholesterol/HDL Ratio 2.98 (0.0-4.4) Phosphorus Level 4.3mg/dL (2.5-4.9) Magnesium Level 2.0mg/dL (1.6-2.6) Test 03/16/16 05:12 White Blood Count 6.7th/mm3 (3.8-10.1) Red Blood Count 5.88mil/mm3 (4.40-5.80) Hemoglobin 17.6g/dL (13.8-17.2) Hematocrit 53.6% (41.0-50.0) Mean Corpuscular Volume 91.2fL (81-100) Mean Corpuscular Hemoglobin 29.9pg (27.0-35.0) Mean Corpuscular Hemoglobin Concent 32.8% (32.0-37.0) Red Cell Distribution Width 14.0% (12.3-15.4) Platelet Count 178bil/L (150-400) Neutrophils (%) (Auto) 69.0% (40-74) Lymphocytes (%) (Auto) 17.6% (14-46) Monocytes (%) (Auto) 12.6% (4-12) Eosinophils (%) (Auto) 0.6% (0-5) Basophils (%) (Auto) 0.1% (0-3) Sodium Level 142mEq/L (134-144) Potassium Level 3.9mEq/L (3.5-5.2) Chloride Level 97mEq/L (97-108) Carbon Dioxide Level 32mmol/L (18-29) Blood Urea Nitrogen 43mg/dL (8-27) Creatinine 1.44mg/dL (0.76-1.27) Estimat Glomerular Filtration Rate 50mL/min (>59) Glucose Level 115mg/dL (60-99) Calcium Level 8.7mg/dL (8.5-10.1) Total Bilirubin 1.4mg/dL (0.0-1.2) Aspartate Amino Transf (AST/SGOT) 40U/L (0-50) Alanine Aminotransferase (ALT/SGPT) 39U/L (0-44) Alkaline Phosphatase 64U/L (25-160) Total Protein 7.1g/dL (6.4-8.4) Albumin 4.0g/dL (3.4-5.0) Microbiology Results Name: JERI AMATO Age/Sex: 85/M Attend Dr: Oliverio Rosas Acct: [id number] Unit: [id number] Status: REG ER Location: SED Re03/11/16 Disch: Specimen: [id number] Collected: 03/11/16 Status: DEV Req#: [id number] Received: 03/11/16 Source: SHAZIA Noel Desc : Subm Dr: Oliverio Rosas MD Ordered: RAPID FLU IRS Comments: Collected by Nurse/Unit? Y/N Y Procedure Result Verified Site Microbiology ZAYRA INFLUENZA RAPID AG SCREEN Final 03/11/16 RESULT NEGATIVE FOR INFLUENZA TYPE A AND B This rapid assay is a screen test only for Influenza A&B and does not definitively rule out the presence of FLU A & B or other respiratory viral pathogens. The assay's sensitivity varies on the specimen type submitted. Nasal washes are optimum. Recommend respiratory viral cultures and DFA to confirm negative screens and rule out other viral pathogens. Per CDC, the sensitivity of this method is approximately 50% for H1N1. A negative result does NOT rule out Novel H1N1 (Swine Flu) Discharge Medications Discharge Medications Aspirin (Aspirin) 325 Mg Tablet 325 MG PO DAILY Prescribed by: ALEYDA CANTOR MD Metoprolol Tartrate (Metoprolol Tartrate) 25 Mg Tablet 25 MG PO BID Prescribed by: ALEYDA CANTOR MD Followup Plan Disposition: Stable Follow-up plan Patient continue with follow-up with normal pressure hydrocephalus. Recommended cardiology follow-up as the patient has a new onset of atrial fibrillation. Discharge Diet: No restrictions Discharge Activity: Other (gradually return to normal activity as tolerated, PT and OT should begin upon discharge to SNF) Patient Instructions Patient has been diagnosed with normal pressure hydrocephalus patient has triad of early dementia, unstable gait and urinary incontinence. Patient will need to hold follow-up studies for the normal pressure hydrocephalus. Follow-up studies a nuclear cisternogram. Please consult your primary care physician after discharge. Follow-up with PCP in: 1 week Time spent > 35 minutes Aleyda Cantor DO Mar 16, 2016 13:04
[2016-03-16 14:08] VITALS: BP 118/79; PULSE 99; RESP 16; O2SAT 90
--- NOTE | 2016-03-16 14:54 | NUR ---
Discharge He discharged from [place] [address] [facility] about 1445. His IV and telemetry were discontinued intact. His discharge paperwork (prescriptions, h/p, instructions) were given to his daughter who came to pick him up. [id number] report was given to Coreen PEREZ. He was assisted by two staff members, his front wheeled walker, and a gait belt to get him into his daughter's car.
== END 2016-03-16 14:45 | DRG 309 ==
LOC: SED 19:55 → OSC 03-12 00:36 → OBSVTOIN 03-12 00:36
PROVIDERS: ADMIT Family Medicine; ATTEND Family Medicine
DX: I48.91 Unspecified atrial fibrillation (principal); G91.2 (Idiopathic) normal pressure hydrocephalus; N17.8 Other acute kidney failure; I50.9 Heart failure, unspecified; F03.90 Unspecified dementia, unspecified severity, without behavioral disturbance, psychotic disturbance, mood disturbance, and anxiety; R32 Unspecified urinary incontinence